=== PATIENT | female | born 1950 | race Caucasian/White ===

== ENCOUNTER 2022-02-25 14:58 | Outpatient (CLI) | payer MEDICARE | END 2022-02-25 14:59 | disposition home or self-care (01) | LOC: BICMAMMO 14:58 | PROVIDERS: ATTEND Internal Medicine Endocrinology, Diabetes & Metabolism | DX: Z13.820 Encounter for screening for osteoporosis (principal); S62.92XA Unspecified fracture of left hand, initial encounter for closed fracture | CPT/HCPCS: 77080 ==

== ENCOUNTER 2022-04-01 16:28 | Outpatient (CLI) | payer MEDICARE | END 2022-04-01 16:29 | disposition home or self-care (01) | LOC: SCSRAD 16:28 | PROVIDERS: ATTEND Family Medicine | DX: M25.561 Pain in right knee (principal); M16.12 Unilateral primary osteoarthritis, left hip ==

== ENCOUNTER 2023-04-13 07:05 | Observation (INO) | payer MEDICARE ==
[2023-04-13] MEDS ORDERED: Vancomycin 1 GM/200 ML (FROZEN) BAG ONE (07:33)
[2023-04-13] MEDS ORDERED: Tranexamic Acid 1,000 MG/10 ML VIAL ONE (07:33)
[2023-04-13] MEDS ORDERED: Sodium Chloride 0.9% 100 ML ONE ×2 (07:33→09:03)
[2023-04-13] MEDS ORDERED: fentaNYL 50 mcg/mL 1 mL Vial ONE ×2 (07:50→11:32)
[2023-04-13] MEDS ORDERED: Midazolam HCl 2 mg/2 ml Vial ONE (07:50)
[2023-04-13] MEDS ORDERED: Naloxone HCl 0.4 mg/ml Vial IVP PRN (08:30)
[2023-04-13] MEDS ORDERED: Moisturizing Cream (Eucerin) 113 GM JAR TOP PRN (08:30)
[2023-04-13] MEDS ORDERED: Promethazine HCl 25 MG SUPP PR PRN (08:30)
[2023-04-13] MEDS ORDERED: HYDROcodone/Acetaminophen 5/325 mg Tablet PO PRN ×2 (08:30)
[2023-04-13] MEDS ORDERED: traMADol HCl 50 MG TAB PO PRN ×2 (08:30)
[2023-04-13] MEDS ORDERED: diphenhydrAMINE 50 MG/ML VIAL IVP PRN (08:30)
[2023-04-13] MEDS ORDERED: diphenhydrAMINE 50 MG/ML VIAL IM PRN (08:30)
[2023-04-13] MEDS ORDERED: Promethazine HCl 25 MG/ML VIAL IM PRN ×3 (08:30→13:42)
[2023-04-13] MEDS ORDERED: Ondansetron PF 4 MG/2 ML Vial IVP PRN ×2 (08:30→13:42)
[2023-04-13] MEDS ORDERED: Naloxone HCl 0.4 mg/ml Vial IV PRN (08:30)
[2023-04-13] MEDS ORDERED: Fentanyl/Bupivacaine 100 ML EPIDURAL SCH (08:30)
[2023-04-13] MEDS ORDERED: fentaNYL PF 100 MCG/2 ML SYRINGE ONE (08:57)
[2023-04-13] MEDS ORDERED: Lidocaine 1.5% w/Epi 1:200K 30 ML VIAL (Epid Use) ONE (09:03)
[2023-04-13] MEDS ORDERED: Ondansetron PF 4 MG/2 ML Vial ONE (09:03)
[2023-04-13] MEDS ORDERED: CEFAZOLIN 2 GM VIAL ONE (09:03)
[2023-04-13] MEDS ORDERED: Dexamethasone 20 MG/5 ML VIAL ONE (09:03)
[2023-04-13] MEDS ORDERED: Rocuronium Bromide 10 MG/ML (10ML VIAL) ONE (09:03)
[2023-04-13] MEDS ORDERED: PROPOFOL 200 MG/20 ML VIAL ONE (09:03)
[2023-04-13] MEDS ORDERED: Glycopyrrolate 0.2 MG/ML 5 ML SYRINGE ONE (09:03)
[2023-04-13] MEDS ORDERED: NEOSTIGMINE 3 MG/3 ML SYR 3 MG/3 ML SYRINGE ONE (09:03)
[2023-04-13] MEDS ORDERED: Lidocaine 1% PF 5 ML VIAL ONE (09:03)
[2023-04-13] MEDS ORDERED: Ondansetron HCl/PF 4 MG/2 ML Vial IVP PRN (10:48)
[2023-04-13] MEDS ORDERED: HYDROmorphone 2 MG/ML VIAL SLOW IVP PRN (10:48)
[2023-04-13] MEDS ORDERED: Zolpidem Tartrate 5 MG TAB PO PRN (13:42)
[2023-04-13] MEDS ORDERED: Acetaminophen 325 MG TAB PO PRN (13:42)
[2023-04-13] MEDS ORDERED: diphenhydrAMINE 25 MG CAP PO PRN (13:42)
[2023-04-13] MEDS ORDERED: Ferrous Gluconate 324 MG TAB PO SCH (14:00)
[2023-04-13] MEDS ORDERED: Multivitamin W/ Minerals 1 TAB PO SCH (14:00)
[2023-04-13] MEDS ORDERED: Aspirin 81 mg Enteric Coated Tablet PO SCH (14:00)
[2023-04-13] MEDS ORDERED: Senokot S 8.6-50 MG TAB PO SCH (14:00)
[2023-04-13] MEDS ORDERED: HumaLOG 300 UNITS/3 ML VIAL SC PRN ×2 (14:12)
[2023-04-13] MEDS ORDERED: Dextrose 50% Abboject 50 ML SYRINGE SLOW IVP PRN (14:12)
[2023-04-13] MEDS ORDERED: Dextrose 5% in Water 1,000 ML IV PRN (14:12)
[2023-04-13] MEDS ORDERED: Glucagon 1 MG/ML KIT IM PRN (14:12)
[2023-04-13] MEDS: Ketorolac Tromethamine 30 MG/ML VIAL IVP SCH ×2 (16:04→17:38)
[2023-04-13] MEDS: metFORMIN 500 MG TAB PO SCH (16:08)
[2023-04-13] MEDS: Sodium Chloride 0.9% 1,000 ML IV SCH (17:26)
[2023-04-13] MEDS: CEFAZOLIN 2 GM in Sodium Chloride 0.9% 100 ML IVPB SCH (17:35)
[2023-04-13] MEDS: busPIRone HCl 5 MG TAB PO SCH (20:40)
[2023-04-13] MEDS: Ferrous Gluconate 324 MG TAB PO SCH (20:41)
[2023-04-13] MEDS: Aspirin 81 mg Enteric Coated Tablet PO SCH (20:41)
[2023-04-13] MEDS: Senokot S 8.6-50 MG TAB PO SCH (20:41)
[2023-04-13] MEDS: diphenhydrAMINE 25 MG CAP PO PRN (20:46)
[2023-04-14] MEDS: Ketorolac Tromethamine 30 MG/ML VIAL IVP SCH ×3 (00:08→11:17)
[2023-04-14] MEDS: CEFAZOLIN 2 GM in Sodium Chloride 0.9% 100 ML IVPB SCH (00:09)
[2023-04-14] MEDS: Sodium Chloride 0.9% 1,000 ML IV SCH ×2 (00:12→11:56)
[2023-04-14] MEDS: diphenhydrAMINE 25 MG CAP PO PRN (05:48)
[2023-04-14 05:59] LABS: Hematocrit 33.6 % (36.0-47.0); Mean Corpuscular HGB CONC 32.7 g/dL (32.0-36.0); Mean Corpuscular Hemoglobin 31.5 pg (27.0-31.0); Mean Corpuscular Volume 96.3 fl (78.0-98.0); Mean Platelet Volume 10.4 fL (7.4-10.4); Platelet Count 314 10x3/uL (130-400); RBC Distribution Width 13.3 % (11.5-14.5); Red Blood Cell (RBC) Count 3.49 mill/uL (4.20-5.40); White Blood Cell (WBC) Count 14.9 10x3/uL (4.8-10.8)
[2023-04-14 08:50] LABS: Anion Gap 12 mmol/L (10-20); BUN (Urea Nitrogen) 26 mg/dL (9.8-20.1); Calc. Creatinine Clearance 80 mL/min (70-130); Calcium 8.5 mg/dL (7.8-10.44); Carbon Dioxide 18 mmol/L (23-31); Chloride 106 mmol/L (98-107); Estimated GFR 77; Glucose 210 mg/dL (80-115); Potassium 4.1 mmol/L (3.5-5.1); Sodium 132 mmol/L (136-145)
[2023-04-14] MEDS ORDERED: Gabapentin 300 MG CAP PO SCH (09:00)
[2023-04-14] MEDS ORDERED: Empagliflozin 10 MG TAB PO SCH (09:00)
[2023-04-14] MEDS ORDERED: Multivitamin W/ Minerals 1 TAB PO SCH (09:00)
[2023-04-14] MEDS ORDERED: Atorvastatin Calcium 40 MG TAB PO SCH (09:00)
[2023-04-14] MEDS ORDERED: Insulin Glargine 30 UNITS/0.3 ML VIAL SC SCH (09:00)
[2023-04-14] MEDS: Ferrous Gluconate 324 MG TAB PO SCH (09:35)
[2023-04-14] MEDS: metFORMIN 500 MG TAB PO SCH (09:35)
[2023-04-14] MEDS: Senokot S 8.6-50 MG TAB PO SCH (09:35)
[2023-04-14] MEDS: busPIRone HCl 5 MG TAB PO SCH (09:35)
[2023-04-14] MEDS: Aspirin 81 mg Enteric Coated Tablet PO SCH (09:36)
[2023-04-14] MEDS ORDERED: HYDROcodone/Acetaminophen 10/325 mg Tablet PO PRN ×2 (12:07→12:12)
[2023-04-14] MEDS ORDERED: fentaNYL 50 mcg/mL 1 mL Vial SLOW IVP PRN (12:13)
[2023-04-14 13:10] VITALS: BP 134/68; TEMP 98.3
== END 2023-04-14 14:35 | disposition home or self-care (01) ==
LOC: SDC 07:05 → INTOOBSV 08:57 → SURG A 08:57
PROVIDERS: ADMIT Orthopaedic Surgery; ATTEND Orthopaedic Surgery
PROC: 0SR906Z Replacement of Right Hip Joint with Oxidized Zirconium on Polyethylene Synthetic Substitute, Open Approach (ICD-10-PCS; principal; 2023-04-13)
DX: M16.11 Unilateral primary osteoarthritis, right hip (principal); E11.9 Type 2 diabetes mellitus without complications; E78.5 Hyperlipidemia, unspecified; F41.9 Anxiety disorder, unspecified; Z98.890 Other specified postprocedural states; Z79.82 Long term (current) use of aspirin; Z79.4 Long term (current) use of insulin; Z87.891 Personal history of nicotine dependence; Z80.0 Family history of malignant neoplasm of digestive organs; Z79.899 Other long term (current) drug therapy
CPT/HCPCS: 27130; 72170; 73501; 80048; 82962 ×2; 85027; 97110 ×2; 97116; 97530 ×3; 97535; C1776; J3010; J3370; 36415; 36416; 51703; 96372; 96374; 96375; 96376; G0378; J1100; J1815; J1885; J2001; J2250; J2405; J2704; J3490

== ENCOUNTER 2023-07-07 11:55 | Outpatient (CLI) | payer MEDICARE | END 2023-07-07 11:56 | disposition home or self-care (01) | LOC: SCSRAD 11:55 | PROVIDERS: ATTEND Nurse Practitioner Family | DX: S99.921A Unspecified injury of right foot, initial encounter (principal) ==

== ENCOUNTER 2024-02-02 16:00 | Outpatient (CLI) | payer MEDICARE | END 2024-02-02 16:01 | disposition home or self-care (01) | LOC: SLEEPLAB 16:00 | PROVIDERS: ATTEND Family Medicine | DX: G47.33 Obstructive sleep apnea (adult) (pediatric) (principal); R53.83 Other fatigue | CPT/HCPCS: 95811 ==